=== PATIENT | male | born 1945 | race Caucasian/White ===

== ENCOUNTER 2021-12-16 10:38 | Outpatient (CLI) | payer MEDICARE, OTHER | END 2021-12-16 10:39 | disposition home or self-care (01) | LOC: NM 10:38 | PROVIDERS: ATTEND Specialist | DX: T84.84XA Pain due to internal orthopedic prosthetic devices, implants and grafts, initial encounter (principal); Z96.653 Presence of artificial knee joint, bilateral | CPT/HCPCS: 78315; A9503 ==